=== PATIENT | female | born 1965 | race Caucasian/White ===

== ENCOUNTER 2018-07-08 21:12 | Emergency (ER) | payer OTHER ==
[~2018-07-08] VITALS: Ht 162.6 cm; Wt 61.2 kg
--- NOTE | ~2018-07-08 | EKG ---
[address] [address] ELECTROCARDIOGRAM REPORT Name: ОЛЬГАPRISCILAGINELSY YANCI [facility] [id number] Admission: 07/08/18 Attend Phys: Discharge: 07/08/18 Date of : 65 Report #: [id number] THIS REPORT FOR: //name// [facility] ED Test Date: 2018-07-08 Test Time: 22:30:36 Pat Name: NELSY MASON Department: Room: Gender: F Vitamin Manager: Jacinto KIRKPATRICK : 1965 Requested By: Tre Bolden Order Number: [id number] MD: Kelvin Roblero Measurements Intervals [place] Rate: 60 P: 49 UT: 176 QRS: 42 QRSD: 95 T: 46 QT: 444 QTc: 444 Interpretive Statements Sinus rhythm Normal tracing No previous ECG available for comparison Electronically Signed On 07-09-2018 8:11:58 CDT by Kelvin Roblero [email or web address] <ELECTRONICALLY SIGNED> By: Kelvin Roblero MD, [facility] 07/09/18 0811 29 2230 Kelvin Roblero MD, FACC /EPI
[2018-07-08 21:29] LABS: ABSOLUTE NEUTROPHILS 5.3 thou/uL (1.4-8.2); BASOPHILS 0.6 % (0.0-2.0); HEMATOCRIT 44.2 % (37.0-47.0); HEMOGLOBIN 15.1 gm/dL (12.0-15.0); LYMPHOCYTES 35.1 % (24.0-44.0); MCH 31.1 pg (26.0-34.0); MCHC 34.1 g/dL (28.0-37.0); MCV 91.2 fL (80.0-100.0); MONOCYTES 6.2 % (1.0-8.0); PLATELET COUNT 301 thou/uL (150-400); POLYS 58.1 % (36.0-66.0); RBC 4.85 mil/uL (4.20-5.00); WBC 9.2 thou/uL (4.0-11.0)
[2018-07-08 21:38] LABS: ANION GAP 6 mmol/L (7-16); BUN 14 mg/dL (7-18); CHLORIDE 102 mmol/L (98-107); CO2 30 mmol/L (21-32); CREATININE 1.1 mg/dL (0.6-1.0); GLUCOSE 88 mg/dL (74-106); POTASSIUM 4.7 mmol/L (3.5-5.1); SODIUM 138 mmol/L (136-145)
[2018-07-08 21:47] LABS: ALBUMIN 3.9 g/dL (3.4-5.0); MAGNESIUM 2.2 mg/dL (1.8-2.4); SGOT 23 U/L (15-37); SGPT 24 U/L (30-65); TOTAL BILIRUBIN 0.3 mg/dL (<0.1-1.0); TOTAL PROTEIN 7.9 g/dL (6.4-8.2); TROPONIN-I <0.06 ng/mL (<0.06)
[2018-07-08 22:46] VITALS: BP 139/82
== END 2018-07-08 22:46 | disposition home or self-care (01) ==
LOC: ER 21:12
PROVIDERS: Emergency Medicine
DX: R53.83 Other fatigue (principal); F17.210 Nicotine dependence, cigarettes, uncomplicated; Z88.1 Allergy status to other antibiotic agents